=== PATIENT | male | born 1995 | race Caucasian/White ===

== ENCOUNTER 2025-05-01 21:14 | Emergency (ER) | payer OTHER, SELFPAY ==
[2025-05-01 21:16] VITALS: BP 147/89
[2025-05-01 21:36] LABS: Hematocrit 30.3 % (39.0-52.0); Hemoglobin 10.7 g/dL (13.0-18.0); Mean Corp Hgb Conc. 35.3 g/dL (33.0-37.0); Mean Corpuscular Volume 90.2 fL (80.0-94.0); Nucleated Red Blood Cells % 0 % (-); Platelet Count 139 10^3/uL (130-400); Red Cell Dist. Width 13.0 % (11.5-14.5)
[2025-05-01] MEDS: NSS 1000 IV (21:42)
[2025-05-01] MEDS: TYLENOL 650 MG PO (21:42)
[2025-05-01 21:49] LABS: ALT (SGPT) 39 U/L (0-50); AST (SGOT) 63 U/L (17-59); Albumin 4.0 g/dl (3.5-5.0); Alkaline Phosphatase 128 U/L (38-126); Blood Urea Nitrogen 6 mg/dl (9-20); Calcium 9.2 mg/dl (8.4-10.2); Carbon Dioxide 20 mmol/L (22-30); Chloride 103 mmol/L (98-107); Glucose 94 mg/dl (70-99); Lipase 127 U/L (23-300); Potassium 3.1 mmol/L (3.5-5.1); Sodium 130 mmol/L (135-145); Total Protein 8.1 g/dl (6.3-8.2); eGFR > 60.00
[2025-05-01] MEDS: TORADOL 15 MG IV (21:57)
[2025-05-01 22:00] VITALS: BP 137/93
--- NOTE | 2025-05-01 22:01 | ED.GENMED ---
History of Present Illness
General
Chief Complaint: Flank Pain
Time Seen by Provider: 05/01/25 21:21
History of Present Illness
History of Present Illness:
29-year-old male with history of polysubstance abuse and prior renal failure requiring dialysis (no longer in need) presents to the emergency department for evaluation of diffuse lower abdominal/pelvic pain and bilateral flank pain. He notes that
he had vomiting and diarrhea yesterday and a little bit of diarrhea today. No fevers or chills. Did note blood in his urine as well as a low-grade temp at the [facility] today. No hematemesis or hematochezia.
Review of Systems
Review of Systems
Allergies reviewed?: Yes
All Other Systems: ROS reviewed and negative except as documented in HPI and ROS
Phy Exam
Physical Exam
Physical Exam:
GEN: Well appearing, NAD, WDWN
HEENT: Oral mucosa moist, no scleral icterus
Cardiac: Regular rate and rhythm, no murmur
Lung: No respiratory distress, no tachypnea
Abdomen: Soft, mild tenderness diffusely to the lower abdomen
MSK: No gross deformity or injuries
Skin: Good color, no pallor or jaundice, no rashes
Neuro: AO x3, moves all extremities freely
Psych: Calm, cooperative
Course
Orders/Labs/Results
Orders:
Orders
05/01/25 21:20
IV Insert/Care/Rem.- Treatment PRN
05/01/25 21:25
Complete Blood Count/With Diff Urgent
Comprehensive Metabolic Panel Urgent
Lipase Urgent
05/01/25 21:36
0.9% Sodium Chloride 1000 ml [Nss] 1,000 ml IV BOLUS
05/01/25 21:37
Acetaminophen [Tylenol] 650 mg PO NOW STA
05/01/25 21:53
Lactic Acid Q4H
Comment: CANCEL 2nd LACTIC ACID IF 1st LACTIC ACID IS LESS THAN 2
Blood Culture Q30M
MELLO Source: Blood/Venous
Specimen Description:
Blood Culture Q30M
MELLO Source: Blood/Venous
Specimen Description:
Ketorolac [Toradol] 15 mg IV NOW STA
05/01/25 22:31
CT Abd/Pel (IV only)-DH only Urgent
Comment:
Reason For Exam: BL pelvic pain
05/01/25 22:36
Urinalysis Reflex To Culture Urgent
Date Specimen was Collected: 05/01/25
Time Specimen was Collected: 21:20
Urine Microscopic Reflex Cult Urgent
Urine Culture Urgent
MELLO Source: U
Specimen Description:
Date Specimen was Collected: 05/01/25
Time Specimen was Collected: 21:20
05/01/25 23:42
CefTRIAXone [Rocephin] 1,000 mg IV NOW STA
Abnormal Lab Results
05/01/25 05/01/25
21:25 22:36
RBC 3.36 L 10^6/uL
(4.70-6.10)
Hgb 10.7 L g/dL
(13.0-18.0)
Hct 30.3 L %
(39.0-52.0)
MCH 31.8 H pg
(27.0-31.0)
MPV 10.7 H fL
(7.4-10.4)
Absolute Lymphs (auto) 0.4 L 10^3/uL
(1.2-3.4)
Absolute Monos (auto) 1.2 H 10^3/uL
(0.1-0.6)
Lymphocytes % 6.6 L %
(20.5-51.1)
Monocytes % 18.9 H %
(1.7-9.3)
Sodium 130 L mmol/L
(135-145)
Potassium 3.1 L mmol/L
(3.5-5.1)
Carbon Dioxide 20 L mmol/L
(22-30)
BUN 6 L mg/dl
(9-20)
Total Bilirubin 2.5 H mg/dl
(0.2-1.3)
AST 63 H U/L
(17-59)
Alkaline Phosphatase 128 H U/L
(38-126)
Urine Ketones 1+ A
(Negative)
Ur Occult Blood Reflex 4+ A
(Negative)
Urine RBC 7-10 A /HPF
(0-2)
Urine Bacteria (Reflex) Many A
(Negative)
Urine Albumin (Reflex) 2+ A
(Neg - Trace)
05/01/25 21:25
05/01/25 21:25
Vital Signs
Initial and Last Documented VS:
Initial Vital Signs
Temp Pulse Resp BP Pulse Ox
98.0 F 97 18 147/89 98
05/01/25 21:16 05/01/25 21:16 05/01/25 21:16 05/01/25 21:16 05/01/25 21:16
Last Documented Vital Signs
Temp Pulse Resp BP Pulse Ox
98.0 F 96 18 146/78 95
05/01/25 21:16 05/01/25 23:27 05/01/25 23:27 05/02/25 00:00 05/02/25 00:00
MDM/Problems Addressed
MDM/Problems Addressed:
Urinalysis is positive for bacteria which could suggest a UTI as the ultimate culprit of his hematuria however I see expect to be overall cause of his pain and vomiting/diarrhea as enteritis as seen on CT scan. He is otherwise suitable for
discharge home, will cover with 1 week course of antibiotics
*Pulse Oximetry
SaO2: 99
Oxygen Mode of Delivery: Room air
Patient hypoxic: no
*Critical Care Note
Total Time (30-74mins, 75-104mins- exclusive of procedures): Not Applicable
ED Attending Note
-
Portions of this chart may have been created with voice recognition software.� Occasional wrong word or��sound alike� substitutions may have occurred due to the inherent limitations of voice recognition software.
Discharge Plan
Departure
Patient Disposition: Home (Routine Discharge)
Date of Disposition: 05/01/25
Time of Disposition: 23:54
Patient with high blood pressure during this ER visit?: No
Discharge Problem:
Bacteriuria with pyuria, Enteritis
Instructions: Viral gastroenteritis in adults
Prescriptions:
New
cefdinir 300 mg capsule
300 mg PO BID Qty: 10 0RF
Referrals:
[facility] [Family Provider, General]
Interventions
Interventions:
*Risk Screen - Suicide Last Done: 05/01/25 21:16
*General Assessment Last Done: 05/01/25 21:16
*Neglect/Abuse Screening Last Done: 05/01/25 21:16
*ED- Fall Risk Assessment Last Done: 05/01/25 21:16
*ED COVID-19 Vaccine History Last Done: 05/01/25 21:16
*ED Influenza Vaccine History Last Done: 05/01/25 21:16
*Nursing Disposition Last Done: 05/02/25 00:08
HH-[facility]-Swuzsijjvh Assessment Last Done: 05/01/25 21:28
ED-Male Genitourinary Assessment Last Done: 05/01/25 21:28
Discharge Date and Time
Discharge Date/Time: 05/02/25 00:08
Print Language: TURKMEN
[2025-05-01 22:45] LABS: Urine Character Clear (Clear)
[2025-05-01 22:52] LABS: Urine Squamous Cell 0-2 /LPF (Few)
[2025-05-01 22:54] LABS: Urine White Cell 0-2 /HPF (0-5)
[2025-05-01 23:00] VITALS: BP 140/89
[2025-05-01 23:21] VITALS: BP 143/81
[2025-05-01] MEDS: ROCEPHIN 1000 MG IV (23:55)
[2025-05-02] VITALS: BP 146/78
== END 2025-05-02 00:08 | disposition home or self-care (01) ==
LOC: EMR 21:14
PROVIDERS: Physician Assistant; EMERGENCY PHYSICIAN Emergency Medicine
DX: R82.71 Bacteriuria (principal); R82.81 Pyuria; K52.9 Noninfective gastroenteritis and colitis, unspecified; F19.11 Other psychoactive substance abuse, in remission; Z99.2 Dependence on renal dialysis
CPT/HCPCS: 99284; 96374; 96375; 96361; 74177; 80053; 81003; 81015; 83605; 83690; 85025; 87040; 87086; Q9967